=== PATIENT | male | born 1930 | race Caucasian/White ===

== ENCOUNTER 2017-09-27 13:01 | Observation (INO) | payer OTHER ==
[~2017-09-27] VITALS: Ht 165.1 cm; Wt 81.6 kg
[~2017-09-27 13:01] MED LIST: ALBUTEROL NEB 0.0 INH; ALBUTEROL1.25 MG/1 INH/SOL; ASPIRIN81 M4 PO; AUGMENTIN 875-1 EACH PO; CHERATUSSIN AC118 M1 PO; CLOPIDOGREL75 M1 PO; DAILY MULTIPLE1 EACH PO; ESCITALOPRAM OX10 MG PO; FISH OIL 1,0001 EACH PO; FLUTICASONE PRO16 GM NASB; LISINOPRIL-HCT1 EAC2 PO; METFORMIN HCL500 M3 PO; MIRALAX17 G1 PO; NORVASC10 M1 PO; OMEPRAZOLE40 M1 PO; PROAIR HFA8.5 GM INH; VITAMIN B-650 M2 PO; ZOCOR20 M1 PO
--- NOTE | 2017-09-27 14:02 | ED MVC/FALL/TRAUMA COMPLAINT ---
History of Present Illness General Chief Complaint: Fall Stated Complaint: FELL THIS MORNING Source: patient, family, old records Exam Limitations: no limitations Vital Signs & Intake/Output Vital Signs & Intake/Output Vital Signs Date Time Temp Pulse Resp B/P B/P Pulse O2 O2 Flow FiO2 Mean Ox Delivery Rate 09/27 1829 97.7 98 18 147/65 97 Room Air 09/27 1710 98.1 96 18 156/66 96 Room Air 09/27 1639 98 09/27 1422 98.8 80 18 157/72 97 Room Air 09/27 1306 97.5 94 20 160/98 96 Room Air Allergies Coded Allergies: No Known Allergies (08/22/17) Reconcile Medications Acetylcysteine (H-Cnscqh-E-Cysteine) (Unknown Strength) CAPSULE (Unknown Dose) PO DAILY SUPPLEMENT (Reported) Albuterol Sulfate (Proair Hfa) 90 MCG HFA.AER.AD 2 PUF INH Q4-6 PRN PRN SHORTNESS OF BREATH (Reported) Albuterol Sulfate 1.25 MG/3 ML VIAL.NEB 1 Vial INH/SONAM BID PRN BAKERS LUNG ( Reported) Amlodipine Besylate (Norvasc) 10 MG TABLET 1 TAB PO DAILY HEART (Reported) Aspirin (Aspirin*) 81 MG TAB.CHEW 1 TAB PO DAILY HEART HEALTH (Reported) Beclomethasone Dipropionate (QVAR) (Unknown Strength) AER.W.ADAP (Unknown Dose ) UNKNOWN (Reported) Clopidogrel Bisulfate (Clopidogrel) 75 MG TABLET 1 TAB PO DAILY BLOOD THINNER (Reported) Escitalopram Oxalate 10 MG TABLET 1 TAB PO DAILY DEPRESSION (Reported) Fluticasone Propionate 50 MCG/ACTUATION SPRAY.SUSP 2 SPRAY NASB DAILY ALLERGIES (Reported) Folic Acid (Unknown Strength) CAPSULE (Unknown Dose) PO DAILY SUPPLEMENT ( Reported) Lisinopril/Hydrochlorothiazide (Lisinopril-Hctz 10-12.5 MG Tab) 10 MG-12.5 MG TABLET 1 TAB PO DAILY HEART (Reported) Metformin HCl 500 MG TABLET 1 TAB PO BID DIABETES (Reported) Mirabegron (Myrbetriq) 25 MG TAB.ER.24H 1 TAB PO DAILY BLADDER (Reported) Multivitamin (Daily Multiple Vitamin) 1 EACH TABLET 1 TAB PO DAILY VITAMIN SUPPORT (Reported) Omeprazole 40 MG CAPSULE.DR 1 CAP PO DAILY ACID REFLUX (Reported) Polyethylene Glycol 3350 (Miralax) 17 GRAM POWD.PACK 1 PAC PO DAILY CONSTIPATION (Reported) dissolve in water Pyridoxine HCl (Vitamin B-6) 50 MG TABLET 1 TAB PO DAILY VITAMIN SUPPORT ( Reported) Simvastatin (Zocor*) 20 MG TABLET 1 TAB PO QPM CHOLESTEROL (Reported) Triage Note: PT TO ED S/P FALL THIS AM. STARTED YESTERDAY AM WITH WEAKNESS. FELL IN THE BATHROOM 0430 THIS AM. DENIES HEADSTRIKE. DENIES ANY PAIN. Triage Nurses Notes Reviewed? yes HPI: 86M PMH CAD, COPD, T2DM presenting with weakness and fall. Was in his usual state of health, woke up from sleep at 4:30am, and immediately collapsed to the floor. Reports that his legs gave out from under him and he had significant weakness. He had no symptoms prior to fall, and denies chest pain, palpitations, SOB, dizziness, lightheadedness, vision changes, or headache. He required assistance getting up and went back to bed, when he awoke later he still had bilateral lower extremity weakness and could not walk. He denies any pain, numbness, paresthesia, and has not had any recent infectious symptoms including URI, urinary, or GI. Was attempted to be ambulated in room, required assistance with transfer and was only able to take a few steps, very unsteady on his feet, unable to walk on his own. Typically walks unassisted and is fully independent. Past History Travel History Traveled to [place] past 21 day No Medical History Any Pertinent Medical History? see below for history Cardiovascular: hypertension, hyperlipidemia Respiratory: RAWLS'S LUNG Gastrointestinal: GERD Psychiatric: anxiety Endocrine: NIDDM Surgical History Surgical History: non-contributory Psychosocial History What is your primary language Estonian Tobacco Use: Quit >30 days ago ETOH Use: denies use Illicit Drug Use: denies illicit drug use Family History Hx Contributory? No Review of Systems Review of Systems Constitutional: Reports: no symptoms. Eyes: Reports: no symptoms. Ears, Nose, Throat, Mouth: Reports: no symptoms. Respiratory: Reports: no symptoms. Cardiovascular: Reports: no symptoms. Gastrointestinal/Abdominal: Reports: no symptoms. Genitourinary: Reports: no symptoms. Musculoskeletal: Reports: no symptoms. Skin: Reports: no symptoms. Neurological/Psychological: Reports: no symptoms. All Other Systems: Reviewed and Negative Physical Exam Physical Exam General Appearance: well developed/nourished, no apparent distress Head: atraumatic, normal appearance Eyes: Bilateral: normal appearance, normal inspection. Ears, Nose, Throat, Mouth: moist mucous membrane Neck: normal inspection, supple, full range of motion Respiratory: normal breath sounds, chest non-tender, no respiratory distress Cardiovascular: regular rate/rhythm Core Measures ACS in differential dx? No CVA/TIA Diagnosis No Sepsis Present: No Sepsis Focused Exam Completed? No Progress Differential Diagnosis: aoritic dissection, abd injury, C/T/L spine injury, ext injury, ICH, pelvis injury, pnemothorax, spinal cord injury Plan of Care: Orders Procedure Date/time Status Regular Diet 09/28 B Active Consistent Carbohydrate 1 09/27 D Complete Patient Data 09/[address] in observation 09/27 1842 Active ED Holding Orders 09/27 1842 Active Vital Signs 09/27 1842 Active PT Evaluate & Treat 09/27 1656 Active RAPID VIRAL INFLUENZA A 09/27 1429 Complete URINALYSIS 09/27 1429 Complete COMPREHENSIVE METABOLIC PANEL 09/27 1429 Complete CREATINE PHOSPHOKINASE 09/27 1429 Complete CBC WITHOUT DIFFERENTIAL 09/27 1429 Complete Intake & Output 09/27 1422 Active FingerStick- Glucose 09/27 1417 Active Laboratory Tests 09/27/17 1510: Anion Gap 15, Estimated GFR > 60, BUN/Creatinine Ratio 17.8, Glucose 114 H, Calcium 9.6, Total Bilirubin 0.6, AST 24, ALT 25, Alkaline Phosphatase 46, Creatine Kinase 59, Total Protein 7.3, Albumin 4.6, Globulin 2.7, Albumin/ Globulin Ratio 1.7, CBC w Diff NO MAN DIFF REQ, RBC 3.68 L, MCV 93.3, MCH 31.5 H, MCHC 33.7, RDW 15.7 H, MPV 10.1, Gran % 50.1, Lymphocytes % 23.3, Monocytes % 17.8 H, Eosinophils % 8.4 H, Basophils % 0.4, Absolute Granulocytes 4.6, Absolute Lymphocytes 2.2, Absolute Monocytes 1.6 H, Absolute Eosinophils 0.8, Absolute Basophils 0 09/27/17 1500: Urine Color YEL, Urine Clarity CLEAR, Urine pH 7.0, Ur Specific [place] 1.015, Urine Protein NEG, Urine Ketones NEG, Urine Nitrite NEG, Urine Bilirubin NEG, Urine Urobilinogen 0.2, Ur Leukocyte Esterase NEG, Ur Microscopic EXAM NOT REQUIRED, Urine Hemoglobin NEG, Urine Glucose NEG Microbiology 09/27 1512 NASOPHARYN: Influenza Virus A & B Rapid Smear - COMP Departure Departure Disposition: STILL A PATIENT Condition: Stable Clinical Impression Primary Impression: Fall Secondary Impressions: Unable to ambulate Referrals: Mark WILLIAM,Sagar Patel (PCP/Family) Departure Forms: Customer Survey General Discharge Information Observation Note Spoke With: Benjie WILLIAM,[facility] Physician Advisor Notified: CINDI HORNE DO Place Patient In: Non-ED OBS Care Area Rationale for Observation: My rational for observation is as follows sudden weakness, inability to ambulate , transfer, or stand with gait instability, unable to go home, unsafe, will require evaluation for etioloy of weakness, physical therapy, possible neurology evaluation.
[2017-09-27 15:48] LABS: ABSOLUTE BASOPHIL COUNT 0 /CUMM (0.0-0.2); ABSOLUTE EOSINOPHIL COUNT 0.8 /CUMM (0.0-0.7); ABSOLUTE GRANULOCYTE CT 4.6 /CUMM (1.4-6.5); ABSOLUTE LYMPH COUNT 2.2 /CUMM (1.2-3.4); ABSOLUTE MONOCYTE COUNT 1.6 /CUMM (0.10-0.60); BASOPHIL % 0.4 % (0.0-2.0)
[2017-09-27 15:57] LABS: EOSINOPHIL % 8.4 % (0-5); GRANULOCYTE % 50.1 % (42.2-75.2); HEMATOCRIT 34.4 % (42-52); MEAN CORPUSCULAR HGB 31.5 PG (27.0-31.0); MEAN CORPUSCULAR HGB CONC 33.7 G/DL (33.0-37.0); MEAN CORPUSCULAR VOLUME 93.3 FL (80.0-94.0); MEAN PLATELET VOLUME 10.1 FL (7.4-10.4); RBC DISTRIBUTION WIDTH 15.7 % (11.5-14.5); RED BLOOD CELL CT 3.68 /CUMM (4.70-6.10); WHITE BLOOD CELL COUNT 9.3 /CUMM (4.8-10.8)
[2017-09-27] MEDS ORDERED: MYRBETRIQ25 M1 PO (16:16)
[2017-09-27] MEDS ORDERED: FOLIC ACID0.8 M1 PO (16:17)
[2017-09-27] MEDS ORDERED: QVAR8.7 GM (16:17)
[2017-09-27] MEDS ORDERED: N-ACETYL-L-CYS600 M1 PO (16:19)
[2017-09-27 16:29] LABS: PLATELET COUNT 37 /CUMM (130-400)
--- NOTE | 2017-09-27 22:33 | RADIOLOGY REPORT ---
EXAMINATION: XR CHEST CLINICAL INFORMATION: Cough with shortness of breath. COMPARISON: Chest radiograph 08/22/2017. TECHNIQUE: 2 views of the chest were obtained. FINDINGS: Status post median sternotomy with changes of prior CABG. No focal infiltrate. The lungs are clear. No pleural effusion. Cardiomediastinal silhouette is unchanged. There is mild prominence of the pulmonary vasculature. Mild degenerative changes of the spine. IMPRESSION: Minimal prominence of the pulmonary vasculature suggesting mild volume overload. No focal infiltrate.
[2017-09-27 22:41] VITALS: BP 148/68
--- NOTE | 2017-09-27 22:51 | History & Physical ---
See Addendum Jaki WILLIAM,[facility] 09/27/17 1800: General Information and HPI MD Statement: I have seen and personally examined MAKSIM VAIL and documented this H&P. The patient is a 86 year old M who presented with a patient stated chief complaint of [Bilateral leg weakness]. Source of Information: patient, family Exam Limitations: poor historian History of Present Illness: Mr. Vail is 86 year old male with past medical history significant for coronary artery disease status post stent 4 years ago, chronic thrombocytopenia, anemia, rectal cancer that was treated in early stage, hypertension, hyperlipidemia, diabetes, overactive bladder, GERD, depression, COPD follow-up with Dr. Blake who presented to ED with chief complain of fatigue. He was feeling well up to , Friday started to feel weak in his legs, early this morning woke up at 4:[address] to the bathroom he collapsed and fell on the floor, reported that "legs giving away" he endorsed feeling a little bit dizzy, denied any blurry vision, loss of consciousness, seizure, urine or stool incontinence. His brought him to bed and he was so fatigued to dress up, called the son who live upstairs and brought to ED for evaluation. Patient denied any shortness of breath, chest pain, palpitation, confusion, abdominal pain, nausea or vomiting, URI symptoms. No history of sick contact. reported history of choking upon eating, no previous aspiration pneumonia. He took his flu and pneumonia vaccine. Patient is independent at baseline, doesn't use walker or cane. Allergies/Medications Allergies: Coded Allergies: No Known Allergies (08/22/17) Home Med list Acetylcysteine (Y-Ndkprg-P-Cysteine) (Unknown Strength) CAPSULE (Unknown Dose) PO DAILY SUPPLEMENT (Reported) Albuterol Sulfate (Proair Hfa) 90 MCG HFA.AER.AD 2 PUF INH Q4-6 PRN PRN SHORTNESS OF BREATH (Reported) Albuterol Sulfate 1.25 MG/3 ML VIAL.NEB 1 Vial INH/SONAM BID PRN BAKERS LUNG ( Reported) Amlodipine Besylate (Norvasc) 10 MG TABLET 1 TAB PO DAILY HEART (Reported) Aspirin (Aspirin*) 81 MG TAB.CHEW 1 TAB PO DAILY HEART HEALTH (Reported) Beclomethasone Dipropionate (QVAR) (Unknown Strength) AER.W.ADAP (Unknown Dose ) UNKNOWN (Reported) Clopidogrel Bisulfate (Clopidogrel) 75 MG TABLET 1 TAB PO DAILY BLOOD THINNER (Reported) Escitalopram Oxalate 10 MG TABLET 1 TAB PO DAILY DEPRESSION (Reported) Fluticasone Propionate 50 MCG/ACTUATION SPRAY.SUSP 2 SPRAY NASB DAILY ALLERGIES (Reported) Folic Acid (Unknown Strength) CAPSULE (Unknown Dose) PO DAILY SUPPLEMENT ( Reported) Lisinopril/Hydrochlorothiazide (Lisinopril-Hctz 10-12.5 MG Tab) 10 MG-12.5 MG TABLET 1 TAB PO DAILY HEART (Reported) Metformin HCl 500 MG TABLET 1 TAB PO BID DIABETES (Reported) Mirabegron (Myrbetriq) 25 MG TAB.ER.24H 1 TAB PO DAILY BLADDER (Reported) Multivitamin (Daily Multiple Vitamin) 1 EACH TABLET 1 TAB PO DAILY VITAMIN SUPPORT (Reported) Omeprazole 40 MG CAPSULE.DR 1 CAP PO DAILY ACID REFLUX (Reported) Polyethylene Glycol 3350 (Miralax) 17 GRAM POWD.PACK 1 PAC PO DAILY CONSTIPATION (Reported) dissolve in water Pyridoxine HCl (Vitamin B-6) 50 MG TABLET 1 TAB PO DAILY VITAMIN SUPPORT ( Reported) Simvastatin (Zocor*) 20 MG TABLET 1 TAB PO QPM CHOLESTEROL (Reported) Past History Travel History Traveled to [place] past 21 day No Medical History Cardiovascular: hypertension, hyperlipidemia Respiratory: RAWLS'S LUNG Gastrointestinal: GERD Psychiatric: anxiety Endocrine: NIDDM Surgical History Surgical History: non-contributory Past Family/Social History Psychosocial History ETOH Use: denies use Illicit Drug Use: denies illicit drug use Review of Systems Review of Systems Constitutional: Denies: chills, fever. EENTM: Denies: double vision, nasal pain. Cardiovascular: Denies: chest pain, palpitations. Respiratory: Denies: cough, short of breath. GI: Denies: constipation, diarrhea, nausea. Genitourinary: Denies: hematuria. Musculoskeletal: Denies: back pain. Skin: Denies: rash. Exam & Diagnostic Data Last 24 Hrs of Vital Signs/I&O Vital Signs Date Time Temp Pulse Resp B/P B/P Pulse O2 O2 Flow FiO2 Mean Ox Delivery Rate 09/271 99.0 98 20 148/68 96 Room Air 09/27 2052 99.0 103 16 146/64 95 Room Air 02/10 1829 97.7 98 18 147/65 97 Room Air 09/27 1710 98.1 96 18 156/66 96 Room Air 09/27 1639 98 09/27 1422 98.8 80 18 157/72 97 Room Air 09/27 1306 97.5 94 20 160/98 96 Room Air Intake & Output 09/28 0800 09/28 0000 09/27 1600 Intake Total 240 0 Output Total 200 0 Balance 40 0 Intake, Oral 240 0 Output, Urine 200 0 Patient 81.647 kg 81.647 kg Weight Weight Reported by Patient Measurement Method Physical Exam General Appearance Alert, Oriented X3, Cooperative, No Acute Distress Skin No Rashes Skin Temp/Moisture Exam: Warm/Dry HEENT Atraumatic, PERRLA, EOMI, Mucous Membr. moist/pink Neck Supple Lymphatic no cervical lymphadenopathy Cardiovascular Regular Rate, Normal S1, Normal S2, No Murmurs Lungs Clear to Auscultation, normal air entery Abdomen Normal Bowel Sounds, Soft, No Tenderness Neurological Normal Speech, Strength at 5/5 X4 Ext, Normal Tone, Sensation Intact, Cranial Nerves 3-12 NL, bilateral absence knee reflex, ankle relex Extremities No Clubbing, No Cyanosis, No Edema, Normal Pulses Last 24 Hrs of Labs/Rajeev: Laboratory Tests 09/27/17 1510: Anion Gap 15, Estimated GFR > 60, BUN/Creatinine Ratio 17.8, Glucose 114 H, Calcium 9.6, Total Bilirubin 0.6, AST 24, ALT 25, Alkaline Phosphatase 46, Creatine Kinase 59, Troponin I Pending, Stq-T-Ydggmbzfgkr Pept Pending, Total Protein 7.3, Albumin 4.6, Globulin 2.7, Albumin/Globulin Ratio 1.7, TSH Pending, CBC w Diff NO MAN DIFF REQ, RBC 3.68 L, MCV 93.3, MCH 31.5 H, MCHC 33.7, RDW 15.7 H, MPV 10.1, Gran % 50.1, Lymphocytes % 23.3, Monocytes % 17.8 H, Eosinophils % 8.4 H, Basophils % 0.4, Absolute Granulocytes 4.6, Absolute Lymphocytes 2.2, Absolute Monocytes 1.6 H, Absolute Eosinophils 0.8, Absolute Basophils 0 09/27/17 1500: Urine Color YEL, Urine Clarity CLEAR, Urine pH 7.0, Ur Specific [place] 1.015, Urine Protein NEG, Urine Ketones NEG, Urine Nitrite NEG, Urine Bilirubin NEG, Urine Urobilinogen 0.2, Ur Leukocyte Esterase NEG, Ur Microscopic EXAM NOT REQUIRED, Urine Hemoglobin NEG, Urine Glucose NEG Microbiology 09/27 1512 NASOPHARYN: Influenza Virus A & B Rapid Smear - COMP Diagnostic Data CXR Results IMPRESSION: Minimal prominence of the pulmonary vasculature suggesting mild volume overload. No focal infiltrate. Assessment/Plan Assessment: Mr. Vail is 86 year old male with past medical history significant for coronary artery disease status post stent 4 years ago, rectal cancer that was treated in early stage, hypertension, hyperlipidemia, diabetes, overactive bladder, GERD, depression, COPD follow-up with Dr. Blake who presented to ED with chief complain of fatigue. Problem list #New onset of weakness and fatigability for 2 days of unclear etiology #Fall #COPD not on home oxygen #Hypertension, hyperlipidemia, diabetes #Anemia and thrombocytopenia follow-up in [facility] Plan -Admit to general medical floor -Vitals every shift -Neuro exam was normal except for absence of knee and ankle reflexes, plantar reflex negative. Repeat neuro exam in a.m. and watch for any neurological changes however unlikely -Consider obtaining CT head if other test negative -Add on proBNP, trops, TSH, and hemoglobin A1c -Chest x-ray was obtained that the didn't show any signs of infection, there was some concern for aspiration pneumonia -Obtain swallow evaluation -Bleeding precaution for thrombocytopenia -Continue home medication aspirin, clopidogrel, lisinopril, amlodipine, Lexapro, fluticasone nasal spray, albuterol inhaler, myrbetriq, folic acid, Lipitor, omeprazole -Accu check and NovoLog sliding scale -DVT prophylaxis Alps -Diet diabetic diet with 2 g sodium restriction -Code full As Ranked By This Provider Problem List: 1. Fall 2. Thrombocytopenia Core Measures/Misc (05/04) Acute Coronary Syndrome ACS Diagnosis: No Congestive Heart Failure Congestive Heart Failure Diagnosis No Cerebrovascular Accident CVA/TIA Diagnosis: No VTE (View Protocol) VTE Risk Factors Age>40 No Mechanical VTE Prophylaxis d/t N/A MechProphylax Ordered No VTE Pharm Prophylaxis d/t Platelets below ref range Sepsis (View protocol) Sepsis Present: No Benjie WILLIAM, [facility] 09/28/17 0617: Attending MD Review Statement Attending Statement Attending MD Statement: examined this patient, discuss w/resident/PA/BOX FABRICATOR, agreed w/resident/PA/BOX FABRICATOR, reviewed images, amended to note Attending Assessment/Plan: 86 yo M with h/o CAD s/p CABG and single stent, HTN, T2DM, chronic thrombocytopenia, COPD, interstitial lung disease, lung nodules, depression, is here for evaluation of weakness and fall. History obtained from . Patient has been weak for past 2 days and this morning, he fell on his way to the bathroom wherein he reports 'his legs gave away'. His assisted him to the bed. He was very fatigued to even dress up by himself. No chest pain, dyspnea, lightheadedness or palpitations. Please note, patient was recently seen in ER in Aug 2017 and was treated with Augmentin for bronchitis. Vitals stable. Neuro exam is nonfocal except unequivocal reflexes. Ecchymosis to left lower back. Labs: Plt 37 (chronic), eosinophils 8.4%. UA clear. CXR: minimal prominence of pulmonary vasculature mild volume overload, no infiltrate. EKG: sinus rhythm, RBBB (old). Assessment and plan: 1. Weakness, gait instability 2. Mechanical fall unclear etiology of sudden onset weakness 3. Chronic thrombocytopenia 4. H/o ILD, COPD, eosinophilia - 23 hour observation on General medicine - Fall precautions - Neurochecks Q4 hourly - PT eval - Case management consult - Check TSH, B12, vit D, HbA1c - No signs of infection/ sepsis - Resume home meds amlodipine, aspirin, plavix, lexapro, lisinopril-hctz, simvastatin, nebs. Hold metformin, initiate novolog SS. DVT ppx Alps (due to thrombocytopenia). Full code. Observation Initial Note - I have personally examined MAKSIM VAIL on 09/28/17 at 0617. The disposition of MAKSIM VAIL is uncertain at this time and before a determination can be made, he requires a period of observation for the following reasons [Fatigue, weakness, fall, gait instability.]
[2017-09-28 06:39] VITALS: BP 120/64
[2017-09-28 08:39] LABS: HEMATOCRIT 32.8 % (42-52); MEAN CORPUSCULAR HGB 32.3 PG (27.0-31.0); MEAN CORPUSCULAR HGB CONC 34.5 G/DL (33.0-37.0); MEAN CORPUSCULAR VOLUME 93.5 FL (80.0-94.0); MEAN PLATELET VOLUME 10.1 FL (7.4-10.4); RBC DISTRIBUTION WIDTH 15.1 % (11.5-14.5); WHITE BLOOD CELL COUNT 10.3 /CUMM (4.8-10.8)
--- NOTE | 2017-09-28 08:40 | PN-Observation ---
Bennie WILLIAM,[facility] 09/28/17 0839: Observation Note Observation Note _ I have personally examined MAKSIM TUCKER. him disposition is uncertain at this time. Before a determination can be made, he requires continued observation for the following reasons [weakness, gait instability, mechanical fall]. Assessment/Plan Assessment: Mr. Tucker is 86 year old male with past medical history significant for coronary artery disease status post stent 4 years ago, rectal cancer that was treated in early stage, hypertension, hyperlipidemia, diabetes, overactive bladder, GERD, depression, COPD follow-up with Dr. Blake who presented to ED with chief complain of fatigue. Problem list #New onset of weakness and fatigability for 2 days of unclear etiology #Fall #COPD not on home oxygen #Hypertension, hyperlipidemia, diabetes #Anemia and thrombocytopenia follow-up in [facility] Plan -Patient was seen by physical therapy today and suggested home self care with rolling walker. Vitals stable. Neuro examination-normal. -TSH-1.8 -We will send vitamin D, vitamin B12 level today. -Bleeding precaution for thrombocytopenia -Continue home medication aspirin, clopidogrel, lisinopril, amlodipine, Lexapro, fluticasone nasal spray, albuterol inhaler, myrbetriq, folic acid, Lipitor, omeprazole -Accu check and NovoLog sliding scale -DVT prophylaxis Alps -Diet diabetic diet with 2 g sodium restriction -Code full Problem List: 1. Gait instability DVT/Prophylaxis: mechanical, pharmacological Subjective Follow-up For: Gait instability Complaints: no complaints Subjective: Patient was seen and examined at bedside today. No overnight events. No complaints. He denies chest pain, chest pressure, nausea, vomiting, fall, loss of consciousness. He said he was able to walk with physical therapy using a walker. Review of Systems Constitutional: Reports: no symptoms. Cardiovascular: Reports: no symptoms. Respiratory: Reports: no symptoms. Gastrointestinal: Reports: no symptoms. Genitourinary: Reports: no symptoms. Musculoskeletal: Reports: no symptoms. Objective Last 24 Hrs of Vital Signs/I&O Vital Signs Date Time Temp Pulse Resp B/P B/P Pulse O2 O2 Flow FiO2 Mean Ox Delivery Rate 09/28 1103 140/80 09/28 1102 140/88 09/28 0639 97.9 74 18 120/64 95 Room Air 09/27 2241 99.0 98 20 148/68 96 Room Air 09/27 2053 99.0 103 16 146/64 95 Room Air 09/27 1829 97.7 98 18 147/65 97 Room Air 09/27 1710 98.1 96 18 156/66 96 Room Air 09/27 1639 98 09/27 1422 98.8 80 18 157/72 97 Room Air 09/27 1306 97.5 94 20 160/98 96 Room Air Intake & Output 09/28 1600 09/28 0800 09/28 0000 Intake Total 250 240 Output Total 500 200 Balance -500 250 40 Intake, IV 10 Intake, Oral 240 240 Output, Urine 500 200 Patient 180 lb Weight Physical Exam General Appearance: Alert, Oriented X3, Cooperative, No Acute Distress HEENT: Atraumatic, PERRLA, EOMI Neck: Supple, No JVD, No thryomegaly Cardiovascular: Normal S1, Normal S2, No Murmurs Lungs: Normal Air Movement Abdomen: Soft, No Tenderness, No Hepatospenomegaly Neurological: Normal Speech, Strength at 5/5 X4 Ext, Normal Tone, Sensation Intact Extremities: No Edema Current Medications: Current Medications Sig/Javier Start time Last Medication Dose Route Stop Time Status Admin Acetaminophen 650 MG Q6P PRN 09/28 0030 AC PO Albuterol Sulfate 3 ML Q4H PRN 09/28 0045 AC 09/28 INH 1110 Albuterol Sulfate 2 PUF Q4-6 PRN PRN 09/28 0045 AC INH Albuterol Sulfate 3 ML ONCE ONE 09/27 1545 DC 09/27 INH 09/27 1546 1634 Amlodipine Besylate 10 MG DAILY 09/28 1000 AC 09/28 PO 1103 Aspirin 81 MG DAILY 09/28 1000 AC 09/28 PO 1102 Atorvastatin Calcium 10 MG 1700 09/28 1700 AC PO Clopidogrel Bisulfate 75 MG DAILY 09/28 1000 AC 09/28 PO 1103 Escitalopram Oxalate 10 MG DAILY 09/28 1000 AC 09/28 PO 1102 Fluticasone 2 SPRAY DAILY 09/28 1000 AC 09/28 Propionate VELASQUEZ 1104 Folic Acid 1 MG DAILY 09/28 1000 AC 09/28 PO 1102 Heparin Sodium 5,000 UNIT Q8 09/28 0600 CAN (Porcine) SC Insulin Aspart 0 TIDAC 09/28 0800 AC SC Lisinopril 10 MG DAILY 09/28 1000 AC 09/28 PO 1102 Melatonin 5 MG ONCE ONE 09/28 0015 DC 09/28 PO 09/28 0016 0004 Melatonin 5 MG .STK-MED ONE 09/27 2310 DC PO 09/27 2311 Mirabegron 25 MG DAILY 09/28 1000 AC 09/28 PO 1103 Omeprazole 40 MG DAILY AC 09/28 0700 AC 09/28 PO 0616 Polyethylene Glycol 17 GM DAILY 09/28 1000 AC 09/28 PO 1103 Last 24 Hrs of Labs/Mics: Laboratory Tests 09/28/17 0740: Anion Gap 12, Estimated GFR > 60, BUN/Creatinine Ratio 16.7, Hemoglobin A1c Pending, CBC w Diff MAN DIFF ORDERED, RBC 3.50 L, MCV 93.5, MCH 32.3 H, MCHC 34.5, RDW 15.1 H, MPV 10.1, Segmented Neutrophils 44, Band Neutrophils 2, Lymphocytes 33, Monocytes 18 H, Eosinophils 3, Platelet Estimate , Normocytic RBCs VERIFIED, Normochromic RBCs VERIFIED 09/27/17 1510: Anion Gap 15, Estimated GFR > 60, BUN/Creatinine Ratio 17.8, Glucose 114 H, Calcium 9.6, Total Bilirubin 0.6, AST 24, ALT 25, Alkaline Phosphatase 46, Creatine Kinase 59, Troponin I < 0.01, Spx-S-Pywjvtdqgwe Pept 139 H, Total Protein 7.3, Albumin 4.6, Globulin 2.7, Albumin/Globulin Ratio 1.7, TSH 1.800, CBC w Diff NO MAN DIFF REQ, RBC 3.68 L, MCV 93.3, MCH 31.5 H, MCHC 33.7, RDW 15.7 H, MPV 10.1, Gran % 50.1, Lymphocytes % 23.3, Monocytes % 17.8 H, Eosinophils % 8.4 H, Basophils % 0.4, Absolute Granulocytes 4.6, Absolute Lymphocytes 2.2, Absolute Monocytes 1.6 H, Absolute Eosinophils 0.8, Absolute Basophils 0 09/27/17 1500: Urine Color YEL, Urine Clarity CLEAR, Urine pH 7.0, Ur Specific Stow 1.015, Urine Protein NEG, Urine Ketones NEG, Urine Nitrite NEG, Urine Bilirubin NEG, Urine Urobilinogen 0.2, Ur Leukocyte Esterase NEG, Ur Microscopic EXAM NOT REQUIRED, Urine Hemoglobin NEG, Urine Glucose NEG Microbiology 09/27 1512 NASOPHARYN: Influenza Virus A & B Rapid Smear - COMP Jose WILLIAM,Radha 09/28/17 1224: Addendum Addendum 86M PMH CAD, COPD, T2DM presenting with weakness and fall. Was in his usual state of health, woke up from sleep at 4:30am, and immediately collapsed to the floor. Reports that his legs gave out from under him and he had significant weakness. He had no symptoms prior to fall, and denies chest pain, palpitations, SOB, dizziness, lightheadedness, vision changes, or headache. He required assistance getting up and went back to bed, when he awoke later he still had bilateral lower extremity weakness and could not walk. He denies any pain, numbness, paresthesia, and has not had any recent infectious symptoms including URI, urinary, or GI. Typically walks unassisted and is fully independent. Still unsteady and weak today. Workup thus far has been negative. Plan - Observation in general medicine - Follow up Vitamin D and B12 - Continue to work with PT - Continue home medications - DVT PPx - Anticipated discharge to [facility] home with home PT tomorrow
[2017-09-28 09:15] LABS: PLATELET COUNT 39 /CUMM (130-400)
--- NOTE | 2017-09-28 12:12 | Patient Discharge Instructions ---
Discharge Instructions General Discharge Information You were seen/treated for: Gait instability Watch for these problems: In case of chest pain, chest pressure, nausea, vomiting, abdominal pain, fall, loss of consciousness please go to the nearest emergency room Special Instructions: Please follow-up with your primary care physician within 1-2 weeks of discharge Diet Continue normal diet: No Recommended Diet: Heart Healthy Activity Full Activity/No Limits: No Activity Self Limited: Yes Acute Coronary Syndrome Inclusion Criteria At DC or during hospital stay patient has or had the following: ACS DIAGNOSIS No Discharge Core Measures Meds if any: Prescribed or Continued at Discharge Meds if any: NOT Prescribed or Continued at Discharge Congestive Heart Failure Inclusion Criteria At DC or during hospital stay patient has or had the following: CHF DIAGNOSIS No Discharge Core Measures Meds if any: Prescribed or Continued at Discharge Meds if any: NOT Prescribed or Continued at Discharge Cerebrovascular accident Inclusion Criteria At DC or during hospital stay patient has or had the following: CVA/TIA Diagnosis No Discharge Core Measures Meds if any: Prescribed or Continued at Discharge Meds if any: NOT Prescribed or Continued at Discharge Venous thromboembolism Inclusion Criteria VTE Diagnosis No VTE Type NONE VTE Confirmed by (Test) NONE Discharge Core Measures - Per Current guidelines, there needs to be overlap - treatment for the first 5 days of Warfarin therapy. - If discharged on Warfarin prior to 5 days of - overlap therapy, the patient will need to be - assessed for post discharge needs including - *Post discharge parental anticoagulation - *Warfarin and/or parental anticoagulation education - *Follow up date to check INR post discharge At least 5 days overlap therapy as Inpatient No Meds if any: Prescribed or Continued at Discharge Note: Overlap Therapy is Warfarin and Anticoagulant Meds if any: NOT Prescribed or Continued at Discharge
[2017-09-28 15:25] VITALS: BP 136/64
[2017-09-28 22:47] VITALS: BP 164/80
[2017-09-29 07:20] VITALS: BP 136/66
--- NOTE | 2017-09-29 08:29 | PN- Housestaff ---
Assessment/Plan Assessment: Mr. Vail is 86 year old male with past medical history significant for coronary artery disease status post stent 4 years ago, rectal cancer that was treated in early stage, hypertension, hyperlipidemia, diabetes, overactive bladder, GERD, depression, COPD follow-up with Dr. Blake who presented to ED with chief complain of fatigue. Problem list #New onset of weakness and fatigability for 2 days of unclear etiology #Fall #COPD not on home oxygen #Hypertension, hyperlipidemia, diabetes #Anemia and thrombocytopenia follow-up in [facility] Plan -Patient was seen by physical therapy today and suggested home self care with rolling walker. Vitals stable. Neuro examination-normal. -TSH-1.8 -We will send vitamin D, vitamin B12 level today. -Bleeding precaution for thrombocytopenia -Continue home medication aspirin, clopidogrel, lisinopril, amlodipine, Lexapro, fluticasone nasal spray, albuterol inhaler, myrbetriq, folic acid, Lipitor, omeprazole -Accu check and NovoLog sliding scale -DVT prophylaxis Alps -Diet diabetic diet with 2 g sodium restriction -Code full
[2017-09-29 08:34] VITALS: BP 136/66
--- NOTE | 2017-09-29 08:50 | PN-Observation ---
Sadaf Tse [facility] 09/29/17 0850: Observation Note Observation Note _ I have personally examined MAKSIM VAIL. him disposition is uncertain at this time. Before a determination can be made, he requires continued observation for the following reasons [weakness, gait instability, mechanical fall]. Assessment/Plan Assessment: Mr. Vail is 86 year old male with past medical history significant for coronary artery disease status post stent 4 years ago, rectal cancer that was treated in early stage, hypertension, hyperlipidemia, diabetes, overactive bladder, GERD, depression, COPD follow-up with Dr. Blake who presented to ED with chief complain of fatigue. Problem list #New onset of weakness and fatigability for 2 days of unclear etiology #Fall #COPD not on home oxygen #Hypertension, hyperlipidemia, diabetes #Anemia and thrombocytopenia follow-up in [facility] Plan -Patient will be followed up by physical therapy today and suggested home self care with rolling walker. Vitals stable. Neuro examination-normal. -TSH-1.8 -B12 >1000, 25OHD 27.9, -Bleeding precaution for thrombocytopenia -Continue home medication aspirin, clopidogrel, lisinopril, amlodipine, Lexapro, fluticasone nasal spray, albuterol inhaler, myrbetriq, folic acid, Lipitor, omeprazole -Accu check and NovoLog sliding scale -DVT prophylaxis Alps -Diet diabetic diet with 2 g sodium restriction -Code full Problem List: 1. Gait instability 2. Fall 3. Thrombocytopenia Subjective Subjective: No overnight event. Patient offered Review of Systems Constitutional: Reports: see HPI. Objective Last 24 Hrs of Vital Signs/I&O Vital Signs Date Time Temp Pulse Resp B/P B/P Pulse O2 O2 Flow FiO2 Mean Ox Delivery Rate 09/29 0834 97.8 78 20 136/66 09/29 0834 97.8 78 20 136/66 09/29 0720 97.8 78 20 136/66 93 Room Air 09/28 2247 98.4 84 20 164/80 93 Room Air 09/28 1855 93 Room Air 09/28 1525 97.6 84 20 136/64 95 09/28 1130 Room Air 09/28 1103 140/80 09/28 1102 140/88 Intake & Output 09/29 1600 09/29 0800 09/29 0000 Intake Total 120 1010 Output Total 850 900 Balance -730 110 Intake, IV 10 Intake, Oral 120 1000 Number 0 Bowel Movements Output, Urine 850 900 Physical Exam General Appearance: Alert, Oriented X3, Cooperative, No Acute Distress Cardiovascular: Regular Rate Lungs: Clear to Auscultation, Normal Air Movement Abdomen: Normal Bowel Sounds, Soft, No Tenderness Extremities: No Edema, Normal Pulses Current Medications: Current Medications Sig/Javier Start time Last Medication Dose Route Stop Time Status Admin Acetaminophen 650 MG Q6P PRN 09/28 0030 AC PO Albuterol Sulfate 3 ML Q4H PRN 09/28 0045 AC 09/28 INH 2040 Albuterol Sulfate 2 PUF Q4-6 PRN PRN 09/28 0045 AC INH Amlodipine Besylate 10 MG DAILY 09/28 1000 AC 09/29 PO 0834 Aspirin 81 MG DAILY 09/28 1000 AC 09/29 PO 0833 Atorvastatin Calcium 10 MG 1700 09/28 1700 AC 09/28 PO 1724 Clopidogrel Bisulfate 75 MG DAILY 09/28 1000 AC 09/29 PO 0834 Escitalopram Oxalate 10 MG DAILY 09/28 1000 AC 09/29 PO 0833 Fluticasone 2 SPRAY DAILY 09/28 1000 AC 09/29 Propionate VELASQUEZ 0833 Folic Acid 1 MG DAILY 09/28 1000 AC 09/29 PO 0833 Insulin Aspart 0 TIDAC 09/28 0800 AC 09/29 SC 0832 Lisinopril 10 MG DAILY 09/28 1000 AC 09/29 PO 0834 Melatonin 5 MG ONCE ONE 09/28 2145 DC 09/28 PO 09/28 2146 2217 Mirabegron 25 MG DAILY 09/28 1000 AC 09/29 PO 0834 Omeprazole 40 MG DAILY AC 09/28 0700 AC 09/28 PO 0616 Polyethylene Glycol 17 GM DAILY 09/28 1000 AC 09/29 PO 0833 Last 24 Hrs of Labs/Mics: Laboratory Tests 09/28/17 1000: Vitamin B12 Medardoed Jerald Sargent 09/29/17 1241: Attending Addendum Attending Brief Note 86M PMH CAD, COPD, T2DM presenting with weakness and fall. Was in his usual state of health, woke up from sleep at 4:30am, and immediately collapsed to the floor. Reports that his legs gave out from under him and he had significant weakness. He had no symptoms prior to fall, and denies chest pain, palpitations, SOB, dizziness, lightheadedness, vision changes, or headache. He required assistance getting up and went back to bed, when he awoke later he still had bilateral lower extremity weakness and could not walk. He denies any pain, numbness, paresthesia, and has not had any recent infectious symptoms including URI, urinary, or GI. Patient denies any new complaints today. Says he wants to go home. Plan - Observation in general medicine - Follow up Vitamin D and B12 - Continue to work with PT - Continue home medications - DVT PPx - Anticipated discharge as per PT recs.
== END 2017-09-29 14:51 ==
LOC: ERH 13:01 → 2NA 18:42 → ERHI 18:42 → ENRESERV 19:39 → ENTRNSPT 21:04 → 2NA 21:22 → EDTRNSPT 21:25 → CMPTRNSPT 21:36 → 2NA 09-29 07:43 → ENTRNSPT 09-29 14:23 → EDTRNSPT 09-29 14:33 → EDTRNSPTSTS 09-29 14:33 → CMPTRNSPT 09-29 14:43 → 2NA 09-29 14:51
PROVIDERS: Internal Medicine; Student in an Organized Health Care Education/Training Program
DX: R53.1 Weakness (principal); R53.83 Other fatigue; I25.10 Atherosclerotic heart disease of native coronary artery without angina pectoris; Z95.5 Presence of coronary angioplasty implant and graft; D69.6 Thrombocytopenia, unspecified; D64.9 Anemia, unspecified; Z85.048 Personal history of other malignant neoplasm of rectum, rectosigmoid junction, and anus; Z95.1 Presence of aortocoronary bypass graft; R26.9 Unspecified abnormalities of gait and mobility; R91.8 Other nonspecific abnormal finding of lung field; Z79.82 Long term (current) use of aspirin; E11.8 Type 2 diabetes mellitus with unspecified complications; Z79.84 Long term (current) use of oral hypoglycemic drugs; I10 Essential (primary) hypertension; E78.5 Hyperlipidemia, unspecified; N32.81 Overactive bladder; K21.9 Gastro-esophageal reflux disease without esophagitis; F32.9 Major depressive disorder, single episode, unspecified; J44.9 Chronic obstructive pulmonary disease, unspecified; F41.9 Anxiety disorder, unspecified; D72.1 Eosinophilia; Z79.899 Other long term (current) drug therapy
CPT/HCPCS: 1263; 36415; 71046; 81003; 82436; 86902; 86920; 87804; 87804-59; 92610-GN; 93005; 93010; 97110-GO; 97116-GO; 97161-GP; 97530-GO; G0378; G8996-GN; G8997-GN; G8998-GN; J1644; J3490